=== PATIENT | male | born 1950 | race Caucasian/White ===

== ENCOUNTER 2016-07-26 07:23 | Day surgery (SDC) | payer OTHER ==
--- NOTE | 2016-07-11 10:45 | HISTORY AND PHYSICAL E ---
History and Physical NAME: ARNOLD FOFANA : 1950 AGE: 65Y ADMITTED: 07/26/2016 ROOM: Admit for colon screening. HISTORY OF PRESENT ILLNESS: Patient known to me 2000 where he did have colon showing the following: Hemorrhoids, rectal polyp, proctitis, cecal polyp. At that time, he was seen by Dr. Carrion. PAST SURGICAL HISTORY: 1. Vasectomy. 2. Testicular surgery as a child. His colon was done again in 2004. In 2004, he had diverticulosis. REVIEW OF SYSTEMS: CARDIAC: Hypertension, high cholesterol. RESPIRATORY: Asthma. Sleep apnea, CPAP. ENDOCRINE: Negative. GASTROINTESTINAL: Reflux. SOCIAL HISTORY: . Three children. PHYSICAL EXAMINATION: VITAL SIGNS: Blood pressure 120/80, pulse 80, respirations 18, temp is 98. HEAD, EYES, EARS, NOSE, THROAT: Normal. NECK: Supple. LUNGS: Clear. ABDOMEN: Soft. NEUROLOGIC: Negative. Colonoscopy in 2009 shows diverticulosis and no polyps. At this time, patient presented for colon screening. MEDICATIONS: Patient takes vitamins and aspirin. CONCLUSIONS: Colon screening. History of diverticulosis. PLAN: Colon screen. DICTATING PHYSICIAN: AUSTEN MORFIN M.D. [id number] PHY#: [id number] ID: [id number] JOB#: [id number] ACCT: [id number] cc:AUSTEN MORFIN M.D., SWETANG M.D. >
[2016-07-26] MEDS ORDERED: LIDOCAINE 2% JELLY 30 ML TUBE ONE (07:27)
[2016-07-26] MEDS ORDERED: ONDANSETRON HCL INJ/PF 4 MG/2 ML SDV ONE (07:27)
[2016-07-26] MEDS ORDERED: NALOXONE HCL INJ/PF 0.4 MG/1 ML SDV ONE (07:27)
[2016-07-26] MEDS ORDERED: PROMETHAZINE HCL INJ 25 MG/1 ML VIAL ONE (07:27)
[2016-07-26] MEDS ORDERED: GLYCOPYRROLATE INJ 0.4 MG/2 ML VIAL ONE (07:27)
[2016-07-26] MEDS ORDERED: FLUMAZENIL INJ 0.5 MG/5 ML VIAL IV ONE (07:28)
[2016-07-26] MEDS ORDERED: EPINEPHRINE INJ 1 MG/10 ML DISP.SYRIN ONE (07:29)
[2016-07-26] MEDS ORDERED: GLUCAGON,HUMAN RECOMB 1 MG INJ ONE (07:29)
[2016-07-26] MEDS: MIDAZOLAM 2 MG/2 ML INJ ONE ×2 (08:36→08:40)
[2016-07-26] MEDS: FENTANYL CITRATE INJ/PF 100 MCG/2 ML AMPUL ONE ×3 (08:38→08:46)
[2016-07-26 09:51] VITALS: BP 107/75
[2016-07-26 10:10] LABS: ABSOLUTE EOSINOPHILS # (AUTO) 0.1 10^3/uL (0.0-0.6); ABSOLUTE LYMPHOCYTES (AUTO) 1.3 10^3/uL (0.5-4.7); ABSOLUTE MONOCYTES (AUTO) 0.8 10^3/uL (0.1-1.4); ABSOLUTE NEUT (AUTO) 4.8 10^3/uL (1.7-8.2); BASOPHILS % (AUTO) 0.4 % (0-2); EOSINOPHILS % (AUTO) 2.1 % (0-6); HEMOGLOBIN 14.5 g/dL (13.5-17.0); HGB HCT DIFFERENCE 2.5; MEAN CORPUSCULAR HEMOGLOBIN 30.7 pg (27.0-33.4); MEAN CORPUSCULAR HGB CONC 35.4 g/dL (32.0-36.0); MEAN CORPUSCULAR VOLUME 87 fl (80-97); MONOCYTES % (AUTO) 11.4 % (3-13); RED BLOOD COUNT 4.74 10^6/uL (4.35-5.55); RED CELL DISTRIBUTION WIDTH 13.2 % (11.5-14.0); SEGMENTED NEUTROPHILS % (AUTO) 67.1 % (42-78); WHITE BLOOD COUNT 7.1 10^3/uL (4.0-10.5)
--- NOTE | 2016-07-26 12:02 | OPERATIVE REPORT E ---
Operative Report NAME: ARNOLD FOFANA : 1950 AGE: 65Y DATE OF SURGERY: 07/26/2016 ROOM: PREOPERATIVE DIAGNOSIS: Colon screening. POSTOPERATIVE DIAGNOSES: 1. External hemorrhoids, mild. 2. Rectosigmoid diminutive polyps. 3. Severe diverticulosis, sigmoid and descending colon. PROCEDURE: Colonoscopy. SURGEON: AUSTEN MORFIN M.D. ANESTHESIA: Versed 3 mg and Fentanyl 100 mcg. TISSUE REMOVED OR ALTERED: Biopsy, rectosigmoid polyps. PROCEDURE: Rectal exam: Mild external hemorrhoids. Rectum shows diminutive polyps at rectosigmoid junction, 1-2 mm in size. Both polyps were removed. Sigmoid diverticulosis, severe, wide-opening diverticula. Descending colon severe diverticulosis. Transverse colon normal. Ascending colon normal. Cecum normal. The scope was withdrawn through the cecum, ascending, transverse, descending and sigmoid all the way to the rectum. CONCLUSIONS: 1. Sigmoid and descending colon diverticulosis. 2. External hemorrhoids. 3. Mild diminutive rectosigmoid polyps. PLAN: 1. Soft diet, low residue, for 3 days. 2. Baseline CBC. 3. Hold aspirin and nonsteroidals for 5 days. 4. The patient is to be re-educated regarding diet and diverticulosis. DICTATING PHYSICIAN: AUSTEN MORFIN M.D. [id number] Y#: [id number] ID: [id number] JOB#: [id number] ACCT: [id number] cc:AUSTEN MORFIN M.D., SWETANG M.D. >
--- NOTE | 2016-07-26 12:02 | DISCHARGE SUMMARY E ---
Discharge Summary NAME: ARNOLD FOFANA : 1950 AGE: 65Y ADMITTED: 07/26/2016 DISCHARGED: 07/26/2016 07/26/2016 PROCEDURE: Colonoscopy and biopsy. HISTORY: This 65-year-old male underwent colon screening. I had done him about 10 years ago. He does have diverticulosis. The patient did have colonoscopy in 2004 and 2000. The patient did have a remote history of polyps and hemorrhoids. Today's colonoscopy shows benign-looking diminutive rectosigmoid polyps and external hemorrhoids. DISCHARGE PLAN: 1. Soft diet. 2. Awaiting biopsy. 3. Baseline CBC. 4. Consider follow-up colonoscopy in 5-10 years. DICTATING PHYSICIAN: AUSTEN MORFIN M.D. [id number] PHY#: [id number] ID: [id number] JOB#: [id number] ACCT: [id number] cc:AUSTEN MORFIN M.D., SWETANG M.D. >
== END 2016-07-26 09:50 | disposition home or self-care (01) ==
LOC: END 07:23
PROVIDERS: ATTEND Specialist
PROC: 0DBN8ZX Excision of Sigmoid Colon, Via Natural or Artificial Opening Endoscopic, Diagnostic (ICD-10-PCS; 2016-07-26)
PROC: 0DBP8ZX Excision of Rectum, Via Natural or Artificial Opening Endoscopic, Diagnostic (ICD-10-PCS; principal; 2016-07-26 08:00)
DX: Z12.11 Encounter for screening for malignant neoplasm of colon (principal); K64.4 Residual hemorrhoidal skin tags; D12.7 Benign neoplasm of rectosigmoid junction; K57.30 Diverticulosis of large intestine without perforation or abscess without bleeding; I10 Essential (primary) hypertension; G47.30 Sleep apnea, unspecified; E78.00 Pure hypercholesterolemia, unspecified; J45.909 Unspecified asthma, uncomplicated; Z79.82 Long term (current) use of aspirin
CPT/HCPCS: 45380; 36415; 85025; 88305 ×2; J2250; J3010; J1610; J0171; J2310; J2405; J2550; J3490

== ENCOUNTER → 2018-04-24 | Outpatient (CLI) | payer MEDICARE, OTHER ==
--- NOTE | 2018-04-24 12:03 | RADIOLOGY REPORT (SQ) ---
EXAM DESCRIPTION: MRI LT LOWER JOINT WITHOUT COMPLETED DATE/TIME: 04/24/2018 11:45 am REASON FOR STUDY: PAIN IN LEFT KNEE M25.562 PAIN IN LEFT KNEE COMPARISON: None. TECHNIQUE: Leftknee images acquired and stored on PACS. Multiplanar images include fat sensitive se quences as T1, water sensitive sequences as FST2 or STIR, cartilage sensitive sequences as FSPD, and gradient echo sequences. LIMITATIONS: None. FINDINGS: JOINT AND BURSAE: No effusion. BONE CORTEX AND MARROW: No alteration of signal to suggest marrow replacement. No worrisome bone lesi ons. No occult fracture. ACL: Intact. No degeneration or ganglion cyst. PCL: Intact. MCL: Intact. No periligamentous edema or fluid. LCL: Intact. No periligamentous edema or fluid. MEDIAL MENISCUS: Diffuse horizontal tear medial meniscus without parameniscal cyst. This is best thomas wn on sagittal images 5-10, and coronal images 11-19. LATERAL MENISCUS: No tears. No abnormal signal. MEDIAL COMPARTMENT: Cartilage preserved. No bone bruises or reactive marrow edema. No osteophytes. LATERAL COMPARTMENT: Cartilage preserved. No bone bruises or reactive marrow edema. No osteophytes. PATELLA: No chondromalacia. No subchondral cysts. Medial and lateral retinacula intact. EXTENSOR MECHANISM: Intact. Quadriceps and patella tendons normal. SOFT TISSUES: Adjacent muscles and subcutaneous tissues normal. Normal flow void in popliteal artery and vein. OTHER: No other significant finding. IMPRESSION: Diffuse horizontal tear throughout the medial meniscus. No parameniscal cysts. TECHNICAL DOCUMENTATION: JOB ID: [id number] [employer]- All Rights Reserved Reading location - IP/workstation name: [email or web address]
== END ==
LOC: RAD 11:02
PROVIDERS: ATTEND Orthopaedic Surgery
DX: M25.562 Pain in left knee (principal); S83.242A Other tear of medial meniscus, current injury, left knee, initial encounter; X58.XXXA Exposure to other specified factors, initial encounter